=== PATIENT | male | born 1960 | race Caucasian/White ===

== ENCOUNTER 2022-05-16 08:46 | Emergency (ER) | payer OTHER ==
[~2022-05-16] VITALS: Ht 172.7 cm; Wt 75.0 kg
[2022-05-16 08:52] VITALS: BP 123/81
[2022-05-16 09:00] VITALS: BP 128/75
[2022-05-16 09:15] VITALS: BP 114/77
[2022-05-16 09:30] VITALS: BP 130/81
[2022-05-16 09:45] VITALS: BP 113/71
[2022-05-16] MEDS ORDERED: VOLTAREN1%GEL TOP (09:58)
[2022-05-16 10:19] VITALS: BP 113/71
== END 2022-05-16 10:15 | disposition home or self-care (01) ==
LOC: ED 08:46
DX: M25.531 Pain in right wrist (principal)